=== PATIENT | male | born 1965 | race Asian ===

== ENCOUNTER 2020-04-28 11:35 | Emergency (ER) | payer OTHER ==
[~2020-04-28] VITALS: Ht 175.3 cm; Wt 78.0 kg
[2020-04-28 11:42] VITALS: BP_SYST 186
--- NOTE | 2020-04-28 11:45 | NUR ---
Patient to ER bed 05 to gown for evaluation. Side rails up.
--- NOTE | 2020-04-28 11:50 | NUR ---
Patient arrived in the ED c/o elevated blood pressure that started yesterday. Denied any chest pain or shortness of breath. Denied any fevers, chills, nausea or vomiting. Patient is alert and oriented x4, respirations even and unlabored, speaking in full sentences, and ambulating with a steady gait. VSS, pain level 0/10. Informed of the approximate wait time. Instructed to notify ED staff for any changes in condition or worsening of symptoms while waiting to be seen by an ED provider. Patient verbalized understanding.
--- NOTE | 2020-04-28 11:56 | NUR ---
ER Dr. Kearney at bedside examining patient.
[2020-04-28] MEDS ORDERED: cloNIDine HCL 0.1 MG TABLET PO ONE (12:45)
--- NOTE | 2020-04-28 12:45 | NUR ---
Administered Clonidine PO as ordered by Dr. Kearney. Patient tolerated the medications well. See eMAR for details.
[2020-04-28 13:30] VITALS: BP_SYST 155
--- NOTE | 2020-04-28 13:30 | NUR ---
Patient given written and verbal discharge instructions and verbalizes understanding. ER MD discussed with patient the results and treatment provided. Patient in stable condition. ID arm band removed. No Rx given. Patient educated on pain management and to follow up with PMD. Pain Scale 0/10. Opportunity for questions provided and answered. Medication side effect fact sheet provided.
== END 2020-04-28 13:30 | disposition home or self-care (01) ==
LOC: SED 11:35
DX: I10 Essential (primary) hypertension (principal)
CPT/HCPCS: 99283